=== PATIENT | male | born 1970 | race Caucasian/White ===

== ENCOUNTER 2023-09-26 11:41 | Emergency (ER) | payer OTHER ==
[~2023-09-26] VITALS: Ht 172.7 cm; Wt 95.5 kg
[2023-09-26 11:45] VITALS: TEMP 98.1
[2023-09-26] MEDS: CloNIDine HCL 0.1 MG TABLET PO ONE ×2 (13:25→14:46)
[2023-09-26] MEDS: METHOCARBAMOL 500 MG TABLET PO ONE (13:26)
[2023-09-26] MEDS: KETOROLAC TROMETHAMINE 60 MG/2 ML VIAL IM ONE (13:26)
[2023-09-26 14:08] LABS: BASOPHILS % (AUTO) 0.7 % (0.0-2.0); EOSINOPHILS % (AUTO) 1.9 % (1.0-6.0); HEMOGLOBIN 15.1 g/dL (13.5-17.5); LYMPHOCYTES # (AUTO) 2.3 K/uL (1.0-4.8); LYMPHOCYTES % (AUTO) 24.3 % (22.0-44.0); MEAN CORPUSCULAR HEMOGLOBIN 27.9 pg (26.0-34.0); MEAN CORPUSCULAR HGB CONC 32.8 G/dL (31.0-37.0); MEAN CORPUSCULAR VOLUME 85 fL (80-100); MONOCYTES # (AUTO) 0.5 K/uL (0.1-1.0); MONOCYTES % (AUTO) 5.8 % (2.0-9.0); NEUTROPHILS # (AUTO) 6.3 K/uL (1.8-7.7); NEUTROPHILS % (AUTO) 67.3 % (40.0-70.0); PLATELET COUNT (AUTO) 199 K/uL (150-450); RED BLOOD CELL COUNT(AUTO) 5.42 MIL/uL (4.50-5.90); RED CELL DISTRIBUTION WIDTH 13.8 % (11.5-14.5); WHITE BLOOD COUNT (AUTO) 9.4 K/uL (4.5-11.0)
[2023-09-26] MEDS ORDERED: IBUP-1492 PO (14:37)
[2023-09-26] MEDS ORDERED: AMLO-257 PO (14:37)
[2023-09-26] MEDS ORDERED: METH-659 PO (14:37)
[2023-09-26] MEDS: AmLODIPine BESYLATE 5 MG TABLET PO ONE (14:46)
[2023-09-26 15:30] VITALS: BP 159/98; PULSE 69; RESP 18
== END 2023-09-26 15:51 | disposition home or self-care (01) ==
LOC: EMS 12:48
DX: S29.012A Strain of muscle and tendon of back wall of thorax, initial encounter (principal); I10 Essential (primary) hypertension; X50.0XXA Overexertion from strenuous movement or load, initial encounter; Y93.89 Activity, other specified; Y92.89 Other specified places as the place of occurrence of the external cause; Y99.8 Other external cause status
CPT/HCPCS: 99284; 85025; 36415; 96372; J1885